=== PATIENT | male | born 1960 | race Caucasian/White ===

== ENCOUNTER 2017-05-21 16:11 | Emergency (ER) | payer OTHER ==
[2017-05-21] MEDS ORDERED: SODIUM CHLORIDE 0.9% 1,000 ML IV STA (16:22)
[2017-05-21 16:55] LABS: Basophils # (A) 0.1 k/uL (0-0.2); Basophils % (A) 1 %; CH 32.4; CHCM 34.5; Eosinophils # (A) 0.2 k/uL (0-0.7); Eosinophils % (A) 2 %; HCT 44.1 % (39.0-53.0); HDW 2.44; HGB 15.3 gm/dL (13.0-17.5); Luc # (Auto) 0.17; Luc % (Auto) 2; Lymphocytes # (A) 2.9 k/uL (1.0-4.8); Lymphocytes % (A) 32 %; MCH 32.6 pg (25.0-35.0); MCHC 34.6 g/dL (31.0-37.0); MCV 94.2 fL (80.0-100.0); Mean Platelet Volume 7.4; Monocytes # (A) 0.5 k/uL (0-1.0); Monocytes % (A) 6 %; Neutrophils # (A) 5.2 k/uL (1.3-7.7); Neutrophils % (A) 58 %; RBC 4.69 m/uL (4.30-5.90); RDW 12.7 % (11.5-15.5); WBC (Perox) 8.84
--- NOTE | 2017-05-21 17:00 | XR ---
EXAMINATION TYPE: XR KUB DATE OF EXAM: 05/21/2017 COMPARISON: NONE HISTORY: Right flank pain TECHNIQUE: 2 views FINDINGS: Bowel gas pattern is normal. There is no sign of intestinal obstruction or pneumoperitoneum . Fecal pattern is normal. Lung bases are clear. There are no pathologic calcifications over the kidn eys. IMPRESSION: Nonacute abdomen.
[2017-05-21 17:03] LABS: ALT 49 U/L (21-72); AST 26 U/L (17-59); Alkaline Phosphatase 67 U/L (38-126); Amylase 53 U/L (30-110); Anion Gap 13 mmol/L; Blood Urea Nitrogen 14 mg/dL (9-20); Calcium 9.5 mg/dL (8.4-10.2); Carbon Dioxide 20 mmol/L (22-30); Chloride 106 mmol/L (98-107); Glucose 97 mg/dL (74-99); Non-African American GFR(MDRD) >60 (>60 ml/min/1.73 sqM); Potassium 4.2 mmol/L (3.5-5.1); Sodium 139 mmol/L (137-145); Total Bilirubin 0.9 mg/dL (0.2-1.3); Total Protein 6.9 g/dL (6.3-8.2)
[2017-05-21] MEDS ORDERED: SODIUM CHLORIDE 0.9% 1,000 ML IV ONE (17:16)
[2017-05-21] MEDS ORDERED: KETOROLAC 30 MG/ML 1 ML VIAL IVP STA (17:16)
[2017-05-21] MEDS ORDERED: ORPHENADRINE 30 MG/ML 2 ML VIAL IVP STA (17:16)
--- NOTE | 2017-05-21 17:39 | ED ---
General Adult HPI - General Chief complaint: Back Pain/Injury Stated complaint: Abd Pain Time Seen by Provider: 05/21/17 16:22 Source: patient, RN notes reviewed Mode of arrival: ambulatory Limitations: no limitations - History of Present Illness Initial comments: This a 56-year-old male presents emergency Department with chief complaint right flank pain. Patient states that he is felt some soreness in the regional last week or so but states that worsen today. Patient states he does have a history kidney stones and this feels similar. Patient denies any nausea, vomiting, diarrhea or constipation. He does admit though he has had a bad back and has had surgeries and states the pain is worse with movement at this time. Patient states he did take some Aleve earlier today which has helped. Patient denies any recent medication - Related Data Home Medications Medication Instructions Recorded Confirmed ALPRAZolam [Xanax] 1 mg PO HS 05/21/17 05/21/17 Aspirin [Adult Low Dose Aspirin EC] 81 mg PO HS 05/21/17 05/21/17 Naproxen Sodium [Aleve] 440 mg PO DAILY PRN 05/21/17 05/21/17 Rivaroxaban [Xarelto] 10 mg PO HS 05/21/17 05/21/17 Simvastatin [Zocor] 40 mg PO HS 05/21/17 05/21/17 Previous Rx's Medication Instructions Recorded Cyclobenzaprine [Flexeril] 10 mg PO TID PRN #15 tab 05/21/17 Hydrocodone/Acetaminophen [[place] 1 tab PO Q6HR PRN #20 tab 05/21/17 5-325] Ibuprofen [Motrin] 600 mg PO Q8HR PRN #30 tab 05/21/17 Allergies Allergy/AdvReac Type Severity Reaction Status Date / Time No Known Allergies Allergy Verified 05/21/17 16:52 Review of Systems ROS Statement: Those systems with pertinent positive or pertinent negative responses have been documented in the HPI. ROS Other: All systems not noted in ROS Statement are negative. Past Medical History Past Medical History: CVA/TIA, Hyperlipidemia Additional Past Medical History / Comment(s): kidney stones, chronic back pain. , insomnia History of Any Multi-Drug Resistant Organisms: None Reported Past Surgical History: Back Surgery Past Psychological History: No Psychological Hx Reported Smoking Status: Current every day smoker Past Alcohol Use History: None Reported Past Drug Use History: None Reported General Exam Limitations: no limitations General appearance: alert, in no apparent distress Head exam: Present: atraumatic, normocephalic, normal inspection Eye exam: Present: normal appearance, PERRL, EOMI. Absent: scleral icterus, conjunctival injection, periorbital swelling ENT exam: Present: normal exam, normal oropharynx, mucous membranes moist Neck exam: Present: normal inspection. Absent: tenderness, meningismus, lymphadenopathy Respiratory exam: Present: normal lung sounds bilaterally. Absent: respiratory distress, wheezes, rales, rhonchi, stridor Cardiovascular Exam: Present: regular rate, normal rhythm, normal heart sounds. Absent: systolic murmur, diastolic murmur, rubs, gallop, clicks GI/Abdominal exam: Present: soft, tenderness, normal bowel sounds. Absent: distended, guarding, rebound, rigid Back exam: Present: CVA tenderness (R). Absent: CVA tenderness (L) Neurological exam: Present: alert, oriented X3, CN II-XII intact Skin exam: Present: warm, dry, intact, normal color. Absent: rash Course Vital Signs 05/21/17 05/21/17 05/21/17 16:18 17:58 18:00 Temperature 98.2 F 98.6 F 98.0 F Pulse Rate 85 56 L 54 L Respiratory 20 17 18 Rate Blood Pressure 129/81 97/54 149/81 O2 Sat by Pulse 97 99 96 Oximetry Medical Decision Making - Medical Decision Making 56-year-old male presents emergency Department chief complaint of right-sided back pain. Patient's pain seemed to be consistent with his kidney stones as well as no evidence of kidney stone. Patient CT does not show an acute abnormality's patient lab work within normal limits. Patient discharged with [facility]. Patient will follow-up with PCP in one to 2 days return parameters were discussed. - Lab Data Result diagrams: 05/21/17 16:35 05/21/17 16:35 Lab Results 05/21/17 05/21/17 05/21/17 Range/Units 16:35 16:35 18:00 WBC 9.0 (3.8-10.6) k/uL RBC 4.69 (4.30-5.90) m/uL Hgb 15.3 (13.0-17.5) gm/dL Hct 44.1 (39.0-53.0) % MCV 94.2 (80.0-100.0) fL MCH 32.6 (25.0-35.0) pg MCHC 34.6 (31.0-37.0) g/dL RDW 12.7 (11.5-15.5) % Plt Count 242 (150-450) k/uL Neutrophils % 58 % Lymphocytes % 32 % Monocytes % 6 % Eosinophils % 2 % Basophils % 1 % Neutrophils # 5.2 (1.3-7.7) k/uL Lymphocytes # 2.9 (1.0-4.8) k/uL Monocytes # 0.5 (0-1.0) k/uL Eosinophils # 0.2 (0-0.7) k/uL Basophils # 0.1 (0-0.2) k/uL Sodium 139 (137-145) mmol/L Potassium 4.2 (3.5-5.1) mmol/L Chloride 106 (98-107) mmol/L Carbon Dioxide 20 L (22-30) mmol/L Anion Gap 13 mmol/L BUN 14 (9-20) mg/dL Creatinine 1.00 (0.66-1.25) mg/dL Est GFR (MDRD) Af Amer >60 (>60 ml/min/1.73 sqM) Est GFR (MDRD) Non-Af >60 (>60 ml/min/1.73 sqM) Glucose 97 (74-99) mg/dL Calcium 9.5 (8.4-10.2) mg/dL Total Bilirubin 0.9 (0.2-1.3) mg/dL AST 26 (17-59) U/L ALT 49 (21-72) U/L Alkaline Phosphatase 67 (38-126) U/L Total Protein 6.9 (6.3-8.2) g/dL Albumin 4.3 (3.5-5.0) g/dL Amylase 53 (30-110) U/L Lipase 88 (23-300) U/L Urine Color Yellow Urine Appearance Clear (Clear) Urine pH 5.5 (5.0-8.0) Ur Specific Kim 1.018 (1.001-1.035) Urine Protein Negative (Negative) Urine Glucose (UA) Negative (Negative) Urine Ketones Negative (Negative) Urine Blood Negative (Negative) Urine Nitrite Negative (Negative) Urine Bilirubin Negative (Negative) Urine Urobilinogen <2.0 (<2.0) mg/dL Ur Leukocyte Esterase Negative (Negative) Disposition Clinical Impression: Strain of lumbar region, Lumbar back pain Disposition: HOME SELF-CARE Condition: Stable Instructions: Acute Low Back Pain (ED) Additional Instructions: Please return to the Emergency Department if symptoms worsen or any other concerns. Prescriptions: Cyclobenzaprine [Flexeril] 10 mg PO TID PRN #15 tab PRN Reason: Muscle Spasm Hydrocodone/Acetaminophen [[place] 5-325] 1 tab PO Q6HR PRN #20 tab PRN Reason: Pain Ibuprofen [Motrin] 600 mg PO Q8HR PRN #30 tab PRN Reason: Pain Referrals: Nonstaff,Physician [Primary Care Provider] - 1-2 days Time of Disposition: 18:49
[2017-05-21 18:01] VITALS: RESP 18
[2017-05-21 18:05] LABS: Appearance,Urine Clear (Clear); Bilirubin,Urine Negative (Negative); Glucose,Urine (UA) Negative (Negative); Ketones,Urine Negative (Negative); Leukocyte Esterase,Urine Negative (Negative); Nitrite,Urine Negative (Negative); PH, Urine 5.5 (5.0-8.0); Protein,Urine Negative (Negative); Specific Gravity,Urine 1.018 (1.001-1.035); UA Billing (MACRO vs. MICRO) CHEM; Urobilinogen,Urine <2.0 mg/dL (<2.0)
[2017-05-21] MEDS ORDERED: RX INFO: IV CONTRAST WAS GIVEN 1 EACH MISC MISCELLANE PRN (18:06)
[2017-05-21] MEDS ORDERED: HYDROmorphone 0.5 MG/0.5 ML SYRINGE IVP STA (18:07)
--- NOTE | 2017-05-21 18:41 | CT ---
EXAMINATION TYPE: CT abdomen pelvis w con DATE OF EXAM: 05/21/2017 COMPARISON: NONE HISTORY: Right flank pain x [address] DLP: 1495.00 mGycm Automated exposure control for dose reduction was used. TECHNIQUE: Helical acquisition of images was performed from the lung bases through the pelvis. CONTRAST: Performed without Oral Contrast and with IV Contrast, patient injected with 100 mL of Omnipaque 300. FINDINGS: Lung bases are clear of consolidation. There is mild subsegmental atelectasis at the lung bases. Ther e is no pleural effusion. There is calcified pleural plaque at the right lung base. Liver spleen pancreas all bladder appear normal. Bile ducts are not dilated. There is no adrenal mass. Kidneys show satisfactory contrast opacification. There is no hydronephrosi s. Ureters are not dilated. Bladder distends smoothly. There is no sign of a pelvic mass. There are p robably nonobstructing small calculi in the left kidney. There is no retroperitoneal adenopathy. Ther e is very little contrast in the renal collecting systems on the delayed images. There is no ascites. Appendix appears normal. I see no intestinal wall thickening. There are no dilat ed loops. There is anterior spurring at L5-S1. IMPRESSION: CALCIFIED PLEURAL PLAQUE AT THE RIGHT LUNG BASE. FIBROTIC CHANGES AND SUBSEGMENTAL ATELECTASIS AT THE LUNG BASES. THERE ARE PROBABLY SMALL NONOBSTRUCTING LEFT RENAL CALCULI. VERY LITTLE CONTRAST IN THE COLLECTING SYSTEMS ON THE DELAYED IMAGES COULD RELATE TO ACUTE RENAL FAIL URE. CLINICAL CORRELATION IS RECOMMENDED. NORMAL APPENDIX.
[2017-05-21 19:01] VITALS: BP 115/64; PULSE 66; TEMP 98.9
== END 2017-05-21 19:06 | disposition home or self-care (01) ==
LOC: EC 16:11
DX: S39.012A Strain of muscle, fascia and tendon of lower back, initial encounter (principal); E78.5 Hyperlipidemia, unspecified; F17.200 Nicotine dependence, unspecified, uncomplicated; Z98.890 Other specified postprocedural states; Z86.73 Personal history of transient ischemic attack (TIA), and cerebral infarction without residual deficits; Z87.442 Personal history of urinary calculi; Z79.01 Long term (current) use of anticoagulants; Z79.82 Long term (current) use of aspirin; Z79.899 Other long term (current) drug therapy
CPT/HCPCS: 99284; 96374; 96375 ×2; 96361 ×2; 36415; 80053; 82150; 83690; 85025; 81003; 74000; 74177; J2360; J1885; Q9967; J1170